=== PATIENT | female | born 1955 | race Caucasian/White ===

== ENCOUNTER → 2016-11-06 | Outpatient (CLI) | payer OTHER | LOC: FIMAGING 16:05 | DX: Z12.31 Encounter for screening mammogram for malignant neoplasm of breast (principal) | CPT/HCPCS: G0202 ==

== ENCOUNTER → 2017-08-10 | Outpatient (CLI) | payer OTHER ==
[~2017-08-10] MED LIST: GADOBUTROL 10 ML VIAL IVP ONE
== END ==
LOC: FIMAGING 15:18
PROVIDERS: ATTEND Dentist Oral and Maxillofacial Surgery
DX: S03.02XA Dislocation of jaw, left side, initial encounter (principal)
CPT/HCPCS: A9585

== ENCOUNTER 2017-10-05 11:00 | Emergency (ER) | payer OTHER ==
[2017-10-05 11:18] VITALS: TEMP 98.3
--- NOTE | 2017-10-05 12:10 | EDPHY ---
General Time Seen by Provider: 10/05/17 12:04 Narrative: CHIEF COMPLAINT: fall, head injury HISTORY OF PRESENT ILLNESS: Patient complains of headache and right-sided neck pain status post fall. She fell last Sunday, 5 days ago. This was Sunday morning when she was walking outside. She slipped on the ice, landing on her head, arms and knees. She thinks she lost consciousness for short period of time. She is able to get up and walk away but had significant headache. She had no neck pain at that time but awoke Sunday morning with a right-sided neck pain. She had some mild pain in the hands and knees that has spontaneously resolved. She now has persistent headache that is primarily on the right side. There is also right-sided neck pain. The pain is intermittently [id number]. No nausea or vomiting. Some dizziness. No midline tenderness of the neck. No sensory complaints. No weakness. No visual disturbance. No other associated complaints or modifying factors. Contacted her primary care physician who sent to the emergency department. REVIEW OF SYSTEMS: Ten systems reviewed and are negative unless otherwise noted in the HPI PCP: Dr. Meeta Garcia SPECIALISTS: None PAST MEDICAL HISTORY: Hypothyroid PAST SURGICAL HISTORY: No recent surgeries. SOCIAL HISTORY: Nonsmoker. Rare alcohol use. No drug use. 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 FAMILY HISTORY: Noncontributory EXAMINATION General Appearance: Alert, no distress Head: normocephalic. No depression. No laceration. There is ecchymosis to the right forehead and below the right eye that is subacute. Eyes: Pupils equal and round, no conjunctival pallor or injection. EOMs intact. No nystagmus. ENT, Mouth: Mucous membranes moist. Airway patent Neck: Normal inspection, supple, soft tissue tenderness of the right side. No midline tenderness. No crepitus. No meningismus. Respiratory: Lungs are clear to auscultation Cardiovascular: Regular rate and rhythm. No murmur Gastrointestinal: Abdomen is soft and nontender Back: non-tender, no bony abnormalities Neurological: GCS 15. Cranial nerves 2-12 grossly intact. A&O, nonfocal, normal gait. Strength is symmetric in all 4 limbs. No pronator drift. Normal [id number]. Skin: Warm and dry, no rash. Ecchymosis as above. No laceration. Extremities: Nontender, no pedal edema. Symmetric range of motion all 4 extremities. Psychiatric: Mood and affect normal DIFFERENTIAL DIAGNOSES: Including but not limited to intracranial hemorrhage, concussion, subarachnoid hemorrhage, epidural hematoma MDM: 12:10 p.m. Fall on the ice with closed head injury on Sunday morning. She does have ecchymosis to the right forehead and around the right eye. She is neuro intact with a headache, right-sided soft tissue neck pain. No focal deficits. No vomiting. Given the patient's age, mechanism and ecchymosis I have ordered CT scans of the head and cervical spine. No imaging elsewhere needed at this time. 12:50 p.m. Notified by radiologist Dr. Jackson. CT scans of the head and cervical spine reveal no acute osseous or intracranial abnormalities. There is hematoma as documented. 1:10 p.m. Patient re-evaluated. I discussed the negative CT scans. I have observed her ambulating in the halls with no difficulty. We discussed discharge home with follow up with primary care physician and concussion specialist. We discussed short course of Fioricet. We discussed ED precautions for any worsening headache, vomiting, visual disturbance or syncope. She is comfortable with this plan and discharged home stable condition. SUPERVISION: Patient was independently examined, but I discussed the case with my secondary supervising physician Dr. Roberts - Diagnostics Imaging Results: Imaging Impressions Cervical Spine CT 10/05/17 12:10 Impression: 1. No acute fracture or soft tissue swelling. 2. If the patient has persistent pain or neurologic deficits, consider cervical spine MRI. Findings discussed with Emergency Department physician back office medical assistant, Jag King, on 10/05/[address] 10/05/17 12:10 Impression: 1. Small right frontal scalp hematoma. 2. No acute skull fracture or hemorrhage. Findings discussed with Emergency Department physician back office medical assistant, Jag King, on 10/05/2017 at 1250 hours. - History Smoking Status: Never smoked - Objective Vital Signs: Initial Vital Signs Temperature (C) 98.3 F 10/05/17 11:13 Heart Rate 95 10/05/17 11:13 Respiratory Rate 17 10/05/17 11:13 Blood Pressure 111/71 10/05/17 11:13 O2 Sat (%) 98 10/05/17 11:13 O2 Delivery Mode Room Air Allergies/Adverse Reactions: No Known Allergies Allergy (Unverified 02/18/10 18:54) Home Medications: Medication Instructions Recorded LEVOXYL 02/18/10 LIOTHYRONINE SODIUM 02/18/10 Acet/Caffeine/Buta Fioricet 1 each PO Q6 PRN #9 tab 10/05/17 [Fioricet (*)] Diazepam [Valium 5 MG (*)] 5 mg PO TID PRN #9 tab 10/05/17 Departure - Departure Disposition: Home, Routine, Self-Care Clinical Impression: Closed head injury with brief loss of consciousness Traumatic hematoma of forehead Qualifiers: Encounter type: initial encounter Qualified Code(s): S00.83XA - Contusion of other part of head, initial encounter Condition: Good Instructions: Diazepam (By mouth), Butalbital/Acetaminophen/Caffeine (By mouth) , Concussion (ED), Head Injury (ED) Additional Instructions: 1. Medication as prescribed as needed 2. Contact your primary care physician for outpatient follow-up 3. Contact the concussion specialist as provided as needed 4. ED precautions as discussed Referrals: Meeta Garcia MD [Primary Care Provider] - As per Instructions Kelly Samuel MD [Medical Doctor] - As per Instructions Prescriptions: Acet/Caffeine/Buta Fioricet [Fioricet (*)] 1 each PO Q6 PRN #9 tab PRN Reason: Headache Diazepam [Valium 5 MG (*)] 5 mg PO TID PRN #9 tab PRN Reason: Spasms
[2017-10-05 14:08] VITALS: BP 103/67; PULSE 70; RESP 14; O2SAT 97
== END 2017-10-05 14:06 | disposition home or self-care (01) ==
DX: S06.9X1A Unspecified intracranial injury with loss of consciousness of 30 minutes or less, initial encounter (principal); S00.83XA Contusion of other part of head, initial encounter; W01.198A Fall on same level from slipping, tripping and stumbling with subsequent striking against other object, initial encounter; Y99.8 Other external cause status; Y93.01 Activity, walking, marching and hiking

== ENCOUNTER → 2017-11-12 | Outpatient (CLI) | payer OTHER | LOC: FIMAGING 15:25 | PROVIDERS: ATTEND Internal Medicine | DX: Z12.31 Encounter for screening mammogram for malignant neoplasm of breast (principal) ==

== ENCOUNTER → 2018-11-13 | Outpatient (CLI) | payer OTHER | LOC: FIMAGING 12:08 | PROVIDERS: ATTEND Internal Medicine | DX: Z12.31 Encounter for screening mammogram for malignant neoplasm of breast (principal) ==